=== PATIENT | female | born 1960 | race Caucasian/White ===

== ENCOUNTER 2019-12-10 12:37 | Outpatient (CLI) | payer OTHER, SELFPAY ==
--- NOTE | ~2019-12-10 | MR_ITS ---
EXAMINATION: MR lumbar spine wo con DATE: 12/10/2019 13:28 INDICATION: Low back pain. Right leg pain and numbness. Right foot drop. TECHNIQUE: Magnetic resonance imaging (MRI) of the lumbar spine was performed without intravenous con trast. Sequences included sagittal T2-weighted FSE, sagittal T2-weighted FS FSE, sagittal T1-weighted FSE, and axial T2-weighted FSE. COMPARISON: Lumbar spine MRI 12/03/2015 FINDINGS: There is 13 degrees dextroscoliosis of thoracolumbar spine. S1 is a transitional segment. T here are Schmorl's nodes at multiple levels. There is moderately decreased disc height at L4-L5 and m ildly decreased disc height at L5-S1. The distal spinal cord signal intensity is normal. The conus me dullaris is at L1-L2. The following disc levels are specifically discussed: L1-L2: The disc does not extend beyond the endplate margin. There is mild bilateral facet joint osteo arthritis. There is no neural foraminal stenosis. There is no central canal stenosis. L2-L3: The disc does not extend beyond the endplate margin. There is moderate right and mild left fac et joint osteoarthritis. There is no neural foraminal stenosis. There is no central canal stenosis. L3-L4: The disc does not extend beyond the endplate margin. There is moderate bilateral facet joint o steoarthritis. There is no neural foraminal stenosis. There is no central canal stenosis. L4-L5: The disc is bulging with superimposed right central extrusion. There is severe right and moder ate left facet joint osteoarthritis. There is moderate right and mild left neural foraminal stenosis. There is mild central canal stenosis. L5-S1: The disc is bulging with superimposed right central extrusion. There is severe bilateral facet joint osteoarthritis. There is mild bilateral neural foraminal stenosis. There is mild central canal stenosis. IMPRESSION: 1. Moderate lower lumbar spondylosis with improvement in the extrusion at L5-S1 from 12/03/2015. Reviewed, dictated and finalized at location A.
== END 2019-12-10 12:38 | disposition home or self-care (01) ==
PROVIDERS: PCP Family Medicine; Visit Provider Family Medicine
DX: M21.371 Foot drop, right foot (principal); R20.2 Paresthesia of skin; M47.816 Spondylosis without myelopathy or radiculopathy, lumbar region
CPT/HCPCS: 72148

== ENCOUNTER 2020-01-31 14:00 | Outpatient (CLI) | payer OTHER, SELFPAY ==
--- NOTE | ~2020-01-31 | MM_ITS ---
EXAMINATION: MM screening tavo BI w luciano HISTORY: Screening mammogram TECHNIQUE: Craniocaudal and mediolateral oblique 3-D tomosynthesis images were obtained and synthetic 2-D images were generated. Bilateral rotated lateral CC views. CAD analysis was submitted and interp reted. (Patient was called back for repeat Right MLO and CC views.) COMPARISON: 12/19/2018 diagnostic left digital mammogram 12/18/2018, 11/02/2017, 10/22/2016 bilateral digital screening mammogram examinations BREAST PARENCHYMAL COMPOSITION: The breasts are heterogeneously dense, which may obscure small masses . FINDINGS: There is a biopsy marker on the right; history of prior benign right breast biopsy. Stable fibroglandular asymmetry. There is no evidence of suspicious mass, calcification, or architect intern ural distortion to suggest malignancy in either breast. There has been no suspicious interval change. IMPRESSION: 1. No mammographic evidence of malignancy. 2. Recommend routine screening mammography in one year. BI-RADS Category 2: Benign finding(s). 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
== END 2020-01-31 14:01 | disposition home or self-care (01) ==
LOC: ANHIMG 14:01
PROVIDERS: PCP Family Medicine; Visit Provider Family Medicine
DX: Z12.31 Encounter for screening mammogram for malignant neoplasm of breast (principal)
CPT/HCPCS: 77063; 77067

== ENCOUNTER 2021-02-11 15:43 | Outpatient (CLI) | payer OTHER, SELFPAY ==
--- NOTE | ~2021-02-11 | MM_ITS ---
EXAMINATION: MM screening [facility] BI w lu[place]ano HISTORY: Screening mammogram TECHNIQUE: Craniocaudal and mediolateral oblique 3-D tomosynthesis images were obtained and synthetic 2-D images were generated. CAD analysis was submitted and interpreted. COMPARISON: 01/31/2020, 12/19/2018, 12/06/2018 BREAST PARENCHYMAL COMPOSITION: The breasts are heterogeneously dense, which may obscure small masses . FINDINGS: There is no evidence of suspicious mass, calcification, or architectural distortion to sugg est malignancy in either breast. There has been no suspicious interval change. IMPRESSION: 1. No mammographic evidence of malignancy. 2. Recommend routine screening mammography in one year. BI-RADS Category 1: Negative Reviewed, dictated and finalized at location A. 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
== END 2021-02-11 15:44 | disposition home or self-care (01) ==
PROVIDERS: PCP Family Medicine; Visit Provider Obstetrics & Gynecology
DX: Z12.31 Encounter for screening mammogram for malignant neoplasm of breast (principal)
CPT/HCPCS: 77063; 77067

== ENCOUNTER 2021-05-21 12:47 | Outpatient (CLI) | payer BC, SELFPAY ==
--- NOTE | ~2021-05-21 | DEXA_ITS ---
Bone Density Report Name: GEM PRIETO Age: 61 Sex: Female Ethnicity: White Date of : 1960 Indication: postmenopausal; inflammatory bowel disease; cancer; Referring Provider: CAMERON RAMACHANDRAN Study: Bone densitometry was performed. Exam Date: May 21, 2021 Accession number: [id number] Bone Density: Region BMD T-score Z-score Classification AP Spine (L1-L4) 1.117 0.6 2.0 Normal Femoral Neck (Left) 0.920 0.6 1.9 Normal Total Hip (Left) 0.972 0.2 1.2 Normal Total Hip Bilateral Avg 0.958 0.1 1.0 Normal Femoral Neck (Right) 0.925 0.7 2.0 Normal Total Hip (Right) 0.943 0.0 0.9 Normal World Health Organization criteria for BMD impression classify patients as: Normal (T-score at or above -1.0), Osteopenia (T-score between -1.0 and -2.5), or Osteoporosis (T-score at or below -2.5). 10-year Fracture Risk: FRAX not reported because: All T-scores for Spine Total, Hip Total, Femoral Neck at or above -1.0 Previous Exams: Region Exam Age BMD T-score BMD Change BMD Change Date g/cm2 vs Baseline vs Previous AP Spine(L1-L4) 05/21/2021 61 1.117 0.6 -0.152(-12.0%) -0.043(-3.7%)* 10/22/2016 56 1.159 1.0 -0.109(-8.6%)# -0.109(-8.6%)# 03/30/2011 50 1.269 2.0 Total Hip(Left) 05/21/2021 61 0.972 0.2 -0.172(-15.0%) -0.064(-6.2%)* 10/22/2016 56 1.036 0.8 -0.108(-9.4%)# -0.108(-9.4%)# 03/30/2011 50 1.143 1.7 Total Hip(Right) 05/21/2021 61 0.943 0.0 -0.182(-16.2%) -0.096(-9.2%)* 10/22/2016 56 1.038 0.8 -0.086(-7.6%)# -0.086(-7.6%)# 03/30/2011 50 1.124 1.5 *Denotes significance at 95% confidence level, LSC for AP Spine = 0.022 g/cm2, LSC for Total Hip = 0.027 g/cm2 Clinical Information Provided by Patient: Has used the following medications: Vitamin D, Calcium Has the following medical conditions: Cancer, Inflammatory bowel diseases Patient maximum height was 69 Menopause Age: 51 Onset of menses at age 17 Number of children 1 Impression: The patient has normal bone mass. The BMD for the AP Spine(L1-L4) decreased, changing by -3.7% since the last DXA exam. The BMD for the Total Hip(Left) decreased, changing by -6.2% since the last DXA exam. The BMD for the Total Hip(Right) decreased, changing by -9.2% since the last DXA exam. Discussion: BONE DENSITY IS ABOVE THE MINIMUM DESIRABLE LEVEL AT ALL SKELETAL SITES TESTED. This patient?s bone mineral density is above the minimum desirable level (T-score -1.0 or better
== END 2021-05-21 12:48 | disposition home or self-care (01) ==
PROVIDERS: PCP Family Medicine; Visit Provider Obstetrics & Gynecology
DX: Z78.0 Asymptomatic menopausal state (principal)
CPT/HCPCS: 77080

== ENCOUNTER 2021-10-09 12:09 | Outpatient (CLI) | payer BC, SELFPAY ==
--- NOTE | ~2021-10-09 | XR_ITS ---
XR hand RT 2V DATE: 10/09/2021 12:30 INDICATION: Arthralgia. Right hand pain. TECHNIQUE: AP and lateral views COMPARISON: None FINDINGS: No fracture or dislocation, periosteal reaction or bone destruction, erosive change or miguel drocalcinosis. Joint spaces are preserved. IMPRESSION: No significant abnormality Reviewed, dictated and finalized at location B. IMPRESSION: No significant abnormality
--- NOTE | ~2021-10-09 | XR_ITS ---
XR hand LT 2V DATE: 10/09/2021 12:31 INDICATION: Arthralgia. Left hand pain. TECHNIQUE: AP and lateral views COMPARISON: None FINDINGS: No fracture, dislocation, periosteal reaction or bone destruction, erosive change, chondroc alcinosis or significant joint space narrowing. IMPRESSION: Negative Reviewed, dictated and finalized at location B. IMPRESSION: Negative
== END 2021-10-09 12:10 | disposition home or self-care (01) ==
LOC: ANHIMG 12:13
PROVIDERS: PCP Family Medicine; Visit Provider Physician Assistant
DX: M25.50 Pain in unspecified joint (principal)
CPT/HCPCS: 73120

== ENCOUNTER 2022-04-06 08:59 | Outpatient (CLI) | payer BC, SELFPAY ==
--- NOTE | ~2022-04-06 | MM_ITS ---
EXAMINATION: MM screening tavo BI w luciano HISTORY: Screening mammogram TECHNIQUE: Craniocaudal and mediolateral oblique 3-D tomosynthesis images were obtained and synthetic 2-D images were generated. CAD analysis was submitted and interpreted. COMPARISON: 02/11/2021, 01/31/2020 bilateral screening mammogram examinations BREAST PARENCHYMAL COMPOSITION: The breasts are heterogeneously dense, which may obscure small masses . FINDINGS: There is no evidence of suspicious mass, calcification, or architectural distortion to sugg est malignancy in either breast. There has been no suspicious interval change. IMPRESSION: 1. No mammographic evidence of malignancy. 2. Recommend routine screening mammography in one year. 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
== END 2022-04-06 09:00 | disposition home or self-care (01) ==
LOC: ANHIMG 09:01
PROVIDERS: PCP Family Medicine; Visit Provider Obstetrics & Gynecology
DX: Z12.31 Encounter for screening mammogram for malignant neoplasm of breast (principal)
CPT/HCPCS: 77063; 77067

== ENCOUNTER 2022-10-28 09:20 | Outpatient (CLI) | payer MEDICARE, SELFPAY ==
[2022-10-28 18:30] LABS: Basophils Percent Auto 0.7 % (0.2-1.2); Eosinophils Absolute Auto 0.1 K/mm3 (0-0.3); Eosinophils Percent Auto 1.2 % (0-4.4); Lymphocytes Absolute Auto 1.37 K/mm3 (0.9-3.2); Lymphocytes Percent Auto 32.7 % (18.3-44.2); Mean Corpuscular HGB Conc 32.5 g/dl (32-36); Mean Corpuscular Hemoglobin 30.7 pg (26-34); Mean Corpuscular Volume 94.3 fl (80-100); Mean Platelet Volume 9.9 fl (7.4-10.4); Monocytes Absolute Auto 0.4 K/mm3 (0.1-0.6); Monocytes Percent Auto 8.4 % (2.6-8.5); Neutrophils Absolute Auto 2.4 K/mm3 (1.3-6.7); Platelet Count Result 201 k/mm3 (150-375); Red Blood Count 4.24 M/mm3 (4.2-5.4); Red Cell Distribution Width 13.2 % (11.5-14.5); White Blood Count 4.2 K/mm3 (4.5-10.0)
[2022-10-28 19:27] LABS: Alanine Aminotransferase 44 U/L (6-35); Albumin Level 4.1 g/dL (3.5-5.1); Alkaline Phosphatase 60 U/L (38-126); Anion Gap 2 mmol/L (8-16); Aspartate Amino Transferase 36 U/L (14-36); Bilirubin,Total 0.7 mg/dL (0.2-1.3); Blood Urea Nitrogen 16 mg/dL (7-17); Calcium 8.8 mg/dL (8.4-10.2); Carbon Dioxide 34 mmol/L (22-30); Chloride 105 mmol/L (98-107); Cholesterol 164 mg/dL (0-200); Estimated Glomerular Filt Rate > 60; Glucose 84 mg/dL (65-110); HDL Direct 79 mg/dL; Potassium 4.3 mmol/L (3.4-5.0); Sodium 141 mmol/L (137-145); Triglycerides 80 mg/dL (<150)
[2022-10-28 19:44] LABS: LDL Cholesterol Direct 70 mg/dL
== END 2022-10-28 09:21 | disposition home or self-care (01) ==
PROVIDERS: PCP Family Medicine; Visit Provider Family Medicine
DX: H50.60 Mechanical strabismus, unspecified (principal); K50.00 Crohn's disease of small intestine without complications
CPT/HCPCS: 36415; 80053; 80061; 84443; 85025

== ENCOUNTER → 2023-04-08 08:56 | Outpatient (CLI) | payer MEDICARE, SELFPAY ==
--- NOTE | ~2023-04-08 | MR_ITS ---
EXAMINATION: MR MRCP wo/w con/w 3D wo ind DATE: 04/08/2023 10:05 INDICATION: History of pancreatic cyst, Crohn's disease TECHNIQUE: Magnetic resonance imaging (MRI) of the abdomen was performed without and with intravenous contrast. Sequences included coronal T2-weighted SS-FSE ARC, coronal T2-weighted FS SS-FSE, coronal T2-weighted 2D FS FIESTA, Water:Coronal LAVA-Flex, sagittal T2-weighted SS-FSE ARC, axial SSFSE ARC, axial 3D DualEcho, axial DWI B=600, axial T1-weighted LAVA, FAT:Coronal LAVA-Flex, and coronal in and opposed phase LAVA-Flex. Thick-slab T2-weighted FRFSE-XL images were obtained for magnetic resonance cholangiopancreatography (MRCP). Maximum intensity projection 3-D reconstructions of the volumetric data were created by the technologist. Postcontrast sequences included a time course of axial T1-weig hted LAVA, FAT:Coronal LAVA-Flex, coronal in and opposed phase LAVA-Flex, and Water:Coronal LAVA-Flex . COMPARISON: CT, 02/28/2015 CONTRAST: Multihance, 12 cc FINDINGS: ABDOMEN MRI: The liver, spleen, and adrenal glands are normal. Changes of cholecystectomy are noted. Cysts of the right kidney measure up to 3 mm. The left kidney is unremarkable. There is a 10 mm x 6 m m cystic lesion in the uncinate process of the pancreas which appears stable since the comparison CT and does not definitely communicate with the main pancreatic duct. There are no pathologically enlarg ed abdominal lymph nodes. There are no dilated loops of bowel. No abnormal enhancement is present aft er contrast administration. ABDOMEN MRCP: There are no stones or stricture of the common bile duct. The pancreatic duct is normal in course and caliber. IMPRESSION: 1. 10 mm cystic lesion in the uncinate process of the pancreas which appear stable since 2015. The di fferential diagnosis includes pseudocyst, intraductal papillary mucinous neoplasm (IPMN), mucinous cy stic neoplasm (MCN), and the less common serous cystadenoma and neuroendocrine tumor. Correlate for h istory of pancreatitis. According to current recommendations, no further follow-up is recommended giv en interval stability. Reviewed, dictated and finalized at location L. 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 10 mm cystic lesion in the uncinate process of the pancreas which appear sta ble since 2014. The differential diagnosis includes pseudocyst, intraductal pap illary mucinous neoplasm (IPMN), mucinous cystic neoplasm (MCN), and the less c ommon serous cystadenoma and neuroendocrine tumor. Correlate for history of rutledge creatitis. According to current recommendations, no further follow-up is recomm ended given interval stability.
== END ==
PROVIDERS: PCP Family Medicine; Visit Provider Family Medicine
DX: K86.2 Cyst of pancreas (principal)
CPT/HCPCS: 74183; 76376; A9577

== ENCOUNTER 2023-06-25 10:29 | Outpatient (CLI) | payer MEDICARE, SELFPAY | END 2023-06-25 10:30 | disposition home or self-care (01) | PROVIDERS: PCP Family Medicine | DX: K50.018 Crohn's disease of small intestine with other complication (principal) | CPT/HCPCS: 36415 ==

== ENCOUNTER 2023-07-30 09:18 | Outpatient (CLI) | payer MEDICARE, SELFPAY ==
--- NOTE | ~2023-07-30 | MM_ITS ---
EXAMINATION: MM screening tavo BI w luciano HISTORY: Screening TECHNIQUE: Craniocaudal and mediolateral oblique 3-D tomosynthesis images were obtained and synthetic 2-D images were generated. CAD analysis was submitted and interpreted. COMPARISON: Comparison to multiple prior studies sequentially, with oldest reviewed study dated 05/2019. BREAST PARENCHYMAL COMPOSITION: Dense: The breasts are heterogeneously dense, which may obscure small masses FINDINGS: There is no evidence of suspicious mass, calcification, or architectural distortion to sugg est malignancy in either breast. There has been no suspicious interval change. IMPRESSION: 1. No mammographic evidence of malignancy. 2. Recommend routine screening mammography in one year. BI-RADS Category 1: Negative Reviewed, dictated and finalized at location B.
== END 2023-07-30 09:19 | disposition home or self-care (01) ==
PROVIDERS: PCP Family Medicine; Visit Provider Nurse Practitioner Family
DX: Z12.31 Encounter for screening mammogram for malignant neoplasm of breast (principal)
CPT/HCPCS: 77063; 77067

== ENCOUNTER 2023-08-19 09:25 | Outpatient (CLI) | payer MEDICARE, SELFPAY ==
[2023-08-19 14:49] LABS: Basophils Percent Auto 0.8 % (0.2-1.2); Eosinophils Absolute Auto 0.1 K/mm3 (0-0.3); Eosinophils Percent Auto 1.8 % (0-4.4); Hematocrit 40.2 % (37.0-47.0); Immature Granulocyte Absolute 0.01 K/mm3 (0.00-0.031); Immature Granulocyte Percent A 0.3 % (0-0.5); Lymphocytes Absolute Auto 1.37 K/mm3 (0.9-3.2); Lymphocytes Percent Auto 34.8 % (18.3-44.2); Mean Corpuscular HGB Conc 32.3 g/dl (32-36); Mean Corpuscular Hemoglobin 29.9 pg (26-34); Mean Corpuscular Volume 92.4 fl (80-100); Mean Platelet Volume 10.3 fl (7.4-10.4); Monocytes Absolute Auto 0.3 K/mm3 (0.1-0.6); Monocytes Percent Auto 6.9 % (2.6-8.5); Neutrophils Absolute Auto 2.2 K/mm3 (1.3-6.7); Neutrophils Percent Auto 55.4 % (45.5-73.1); Platelet Count Result 167 k/mm3 (150-375); Red Blood Count 4.35 M/mm3 (4.2-5.4); Red Cell Distribution Width 12.5 % (11.5-14.5); White Blood Count 3.9 K/mm3 (4.5-10.0)
[2023-08-19 15:40] LABS: Iron 79 ug/dL (37-170)
[2023-08-19 15:51] LABS: Alanine Aminotransferase 47 U/L (6-35); Albumin Level 4.3 g/dL (3.5-5.1); Alkaline Phosphatase 60 U/L (38-126); Anion Gap 8 mmol/L (4-12); Aspartate Amino Transferase 45 U/L (14-36); Bilirubin,Total 0.8 mg/dL (0.2-1.3); Blood Urea Nitrogen 20 mg/dL (7-17); CRP < 0.5 mg/dL (<1.0); Carbon Dioxide 29 mmol/L (22-30); Chloride 104 mmol/L (98-107); Estimated Glomerular Filt Rate > 60; Glucose 84 mg/dL (65-110); Potassium 3.8 mmol/L (3.4-5.0); Sodium 141 mmol/L (137-145)
[2023-08-19 16:01] LABS: Percent Iron Saturation 22 % (20-50)
[2023-08-19 17:20] LABS: Folic Acid > 20.0 ng/mL (2.76->20)
[2023-08-22 12:08] LABS: Zinc 79 mcg/dL (60-130)
== END 2023-08-19 09:26 | disposition home or self-care (01) ==
LOC: ANHGOSHLAB 09:28
PROVIDERS: PCP Family Medicine
DX: K50.018 Crohn's disease of small intestine with other complication (principal); Z79.899 Other long term (current) drug therapy
CPT/HCPCS: 36415; 80053; 82607; 82728; 82746; 83540; 83550; 84630; 85025; 86140

== ENCOUNTER 2023-12-28 08:37 | Outpatient (CLI) | payer MEDICARE, SELFPAY ==
[2023-12-28 20:42] LABS: Alanine Aminotransferase 36 U/L (6-35); Albumin Level 4.3 g/dL (3.5-5.1); Alkaline Phosphatase 59 U/L (38-126); Aspartate Amino Transferase 34 U/L (14-36); Bilirubin,Total 1.1 mg/dL (0.2-1.3)
[2023-12-28 23:01] LABS: Hepatitis B Surface Antigen Negative (Negative)
[2023-12-28 23:06] LABS: HAV RESULT Negative (Negative); Hepatitis B Core IgM Result Negative (Negative)
[2023-12-28 23:18] LABS: Hepatitis C Virus Antibody Negative (Negative)
== END 2023-12-28 08:38 | disposition home or self-care (01) ==
LOC: ANHGOSHLAB 08:39
PROVIDERS: PCP Family Medicine; Visit Provider Family Medicine
DX: R74.8 Abnormal levels of other serum enzymes (principal)
CPT/HCPCS: 36415; 80074; 80076

== ENCOUNTER 2024-03-23 10:55 | Outpatient (CLI) | payer MEDICARE, SELFPAY ==
[2024-03-23 18:27] LABS: Basophils Percent Auto 0.5 % (0.2-1.2); Hematocrit 40.1 % (37.0-47.0); Hemoglobin 13.1 g/dL (12.0-15.0); Lymphocytes Absolute Auto 1.26 K/mm3 (0.9-3.2); Lymphocytes Percent Auto 32.6 % (18.3-44.2); Mean Corpuscular HGB Conc 32.7 g/dl (32-36); Mean Corpuscular Hemoglobin 30.9 pg (26-34); Mean Corpuscular Volume 94.6 fl (80-100); Mean Platelet Volume 10.2 fl (7.4-10.4); Monocytes Absolute Auto 0.3 K/mm3 (0.1-0.6); Monocytes Percent Auto 6.7 % (2.6-8.5); Neutrophils Absolute Auto 2.3 K/mm3 (1.3-6.7); Neutrophils Percent Auto 59.2 % (45.5-73.1); Platelet Count Result 151 k/mm3 (150-375); Red Blood Count 4.24 M/mm3 (4.2-5.4); Red Cell Distribution Width 12.2 % (11.5-14.5); White Blood Count 3.9 K/mm3 (4.5-10.0)
[2024-03-23 19:15] LABS: Alanine Aminotransferase 42 U/L (6-35); Albumin Level 4.3 g/dL (3.5-5.1); Alkaline Phosphatase 59 U/L (38-126); Anion Gap 7 mmol/L (4-12); Aspartate Amino Transferase 34 U/L (14-36); Blood Urea Nitrogen 19 mg/dL (7-17); CRP < 0.5 mg/dL (<1.0); Carbon Dioxide 30 mmol/L (22-30); Chloride 101 mmol/L (98-107); Estimated Glomerular Filt Rate > 60; Glucose 86 mg/dL (65-110); Potassium 3.6 mmol/L (3.4-5.0); Sodium 138 mmol/L (137-145)
[2024-03-23 19:19] LABS: Iron 129 ug/dL (37-170)
[2024-03-23 19:28] LABS: Hepatitis B Surface Antigen Negative (Negative)
[2024-03-23 19:30] LABS: Percent Iron Saturation 36 % (20-50)
[2024-03-23 19:33] LABS: Hepatitis B Core IgM Result Negative (Negative)
[2024-03-23 19:45] LABS: Hepatitis B Surface Anti Res Negative
[2024-03-23 19:55] LABS: Vitamin D 25 Hydroxy 33.7 ng/mL
[2024-03-23 20:14] LABS: Folic Acid 19.3 ng/mL (2.76->20)
--- OUTSIDE RECORDS SUMMARY | 2024-03-24 04:26 | XMS_ITS | Clinical Summary ---
Author Organization [facility] Address [address] [place] [address] Care Team Providers Care Building Repair Maintenance Supervisor Name Role Phone Kolton Roe MD Primary Care Provider [phone] Timbo Swanson MD Unavailable [phone] Johan Martinez MD Unavailable [phone] Allergies Active Allergy Reactions Criticality Noted Date Comments Oxycodone Other (See comments) Low 12/12/2014 Confusion, Behavorial changes. Medications calcium carb-magnesium ox,carb 200 mg calcium- 100 mg tablet,chewableI ndications:Bone health support Take 1 tablet by mouth every morning Active pyridoxine (VITAMIN B-6) 100 mg tabletIndication s:Vitamin Deficiency Prevention Take 1 tablet (100 mg total) by mouth every morning Active cyanocobalamin (Vitamin B-12) 1,000 mcg tabletIndication s:Prevention of Vitamin B12 Deficiency Take 1 tablet (1,000 mcg total) by mouth every morning Active folic acid (FOLVITE) 1 mg tabletIndication s:Folate Deficiency Take 1 tablet (1 mg total) by mouth every morning Active multivit pcjulrya-ymoi-WS -calcium (THERA-M) 9 mg iron-400 mcg tabletIndication s:Vitamin Deficiency Prevention Take 1 tablet by mouth every morning Active adalimumab (Humira,CF,) 40 mg/0.4 mL syringe kitIndications:C rohn's Disease Inject 0.4 mL (40 mg total) under the skin every 14 (fourteen) days Last injection was 01/24/2023 3 Active traZODone (DESYREL) 50 mg tabletIndication s:insomnia associated with depression Take 1 tablet (50 mg total) by mouth nightly at bedtime 3 Active Lactobacillus acidophilus (PROBIOTIC ACIDOPHILUS ORAL)Indications :gut health Take 1 capsule by mouth nightly Plexus brand Active acetaminophen (TYLENOL) 500 mg tablet Take 1 tablet (500 mg total) by mouth every 6 (six) hours as needed for pain or headaches (gets headaches from budesonide) Active sodium chloride-aloe vera ([place] Saline) gelIndications:E pistaxis Apply 1 Application topically as needed Active valACYclovir (VALTREX) 500 mg tablet Take 1 tablet (500 mg total) by mouth 3 (three) times a day 90 tablet 5 3 Active ketorolac (ACULAR) 0.5 % ophthalmic solution Administer 1 drop into the left eye 4 (four) times a day 5 mL 2 3 Active budesonide EC (ENTOCORT EC) 3 mg 24 hr capsule Take 2 capsules (6 mg total) by mouth every morning Active Active Problems Problem Noted Date Diagnosed Date Pseudophakia of left eye 02/27/2023 Assessment & Plan (02/27/2023 3:50 PM DIRECTOR FEDERAL): POD1.5 s/p CEIOL OS --Last seen 02/25 at which point noted to have lamellar hole OS and started on ketorolac QID in addition to pred forte QID --Today: exam stable, vision slightly improved. No PVD, VH, RD/RT on scleral depressed exam OS. PLAN --Continue pred forte QID --Continue ketorolac QID --Continue valtrex 1g TID as instructed --RTC as scheduled on 03/[address] Hardy, PGY-4. Posterior subcapsular polar age-related cataract of left eye 02/05/2023 Pseudophakia of right eye 01/13/2022 Polyarthralgia 10/08/2021 Overview (10/22/2021): Labs 10/08/2021 CBC wnl ALT 61, CMP otherwise wnl CRP and ESR wnl RF, CCP, and 14.3.3 eta negative Xrays 10/09/2021 XR B hands - negative Ultrasound 10/15/2021 US Right hand/wrist: 1) Marked synovial thickening of the dorsal wrist with erosion of the lunate 2) Grade 1 power Doppler of the radial scaphoid joint 3) Marked synovial thickening of the 3rd MCPJ, Mild in the 4th MCPJ 4) Marked synovial thickening of the 2nd and 3rd PIPJ Assessment & Plan (10/22/2021 2:55 PM CDT): 61yoF with a history of Crohn's presents due to acute on chronic joint discomfort which seemingly worsened after Stelara injection earlier this year. The question became atypical AE vs 2/2 active disease. She has had some mechanical sounding joint pain for many years, it was primarily stiffness that was worse in the morning which occurred after Stelara. By exam today she has several tender joints in her hands as well as synovitis in a few PIP joints. Our workup shows largely unremarkable serologies, normal hand xrays, and US of the R hand/wrist with marked synovial thickening in three joints without effusion/power doppler and an erosion of the lunate of uncertain significance. The synovial thickening on exam does correlate with the synovitis noted on exam. 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 Lilia mentioned that Humira was being considered as her next treatment option, certainly agree that this would be an appropriate choice. However, she felt that Stelara was helping her IBD and she may prefer to continue with this for another dose before considering a switch to Humira, which is reasonable. In either case, would plan to see her back in ~6 months to assess how her joints have responded to treatment. Follow up sooner as needed. Assessment & Plan (10/08/2021 3:53 PM CDT): 61yoF with a history of Crohn's presents due to acute on chronic joint discomfort which seemingly worsened after Stelara injection earlier this year. The question became atypical AE vs 2/2 active disease. She has had some mechanical sounding joint pain for many years, it was primarily stiffness that was worse in the morning which occurred after Stelara. She has noticed a gradual improvement the further removed she gets from the last Stelara. By exam today she has several tender joints in her hands as well as suspected synovitis in a few joints. Agree that would not typically expect this to be a side effect of Stelara, suspect that she may have an inflammatory arthritis which may well be an extraintestinal manifestation of her active Crohn's vs overlap with something like RA. Lilia mentioned that Humira was being considered as her next treatment option, certainly agree that this would be an appropriate choice should we find active inflammatory arthritis. To further evaluate will check labs and imaging as below with follow up in 2 weeks to review results. Crohn's disease (CMS/HCC) 04/15/2021 Assessment & Plan (10/22/2021 2:55 PM CDT): MRI 08/2021 with involvement of the distal 15 cm of small bowel with mild colitis of the descending colon to the rectum and possible partial SOB. Most recently started on Stelara, on hold, and resumed budesonide as of 10/01. She will follow up with GI to discuss next steps in treatment. Assessment & Plan (10/08/2021 3:55 PM CDT): MRI 08/2021 with involvement of the distal 15 cm of small bowel with mild colitis of the descending colon to the rectum and possible partial SOB. Most recently started on Stelara, on hold, and resumed budesonide as of 10/01. Will workup joint complaints and agree with consideration for the use of Humira as above. 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 Hx PBK/endo scar s/p IOL OD(06/16/16 Dr. Suarez) Hx of herpetic keratitis. Initial confocal (06/2016) 307 / 2924 May be starting biologic soon Continue Valtrex 250mg daily RTC 1 year Assessment & Plan (05/31/2018 11:41 AM CDT): Brown- Kingston Syndrome Stable. Hx PBK/endo scar s/p IOL OD(06/16/16 Dr. Suarez) Hx of herpetic keratitis. Initial confocal (06/2016) 307 / 2924 CPM (valtrex 500mg daily) RTC yearly (gets DFE with optom) Posterior subcapsular age-related cataract, left eye 05/31/2018 Assessment & Plan (10/08/2022 3:20 PM CDT): Decreased VA/BAT/AdLs REC: CE/PCIOL OS Risks, benefits, and alternatives of surgery discussed in detail with patient including but not limited to infection, bleeding, persistent inflammation, pain, diplopia, ptosis, need for further visits and surgeries, need for spectacle or contact lens correction after surgery, possible loss of vision, possible loss of the eye, and risks of anesthesia. The patient understands these risks and wishes to proceed. Assessment & Plan (01/13/2022 12:00 PM DIRECTOR FEDERAL): Visually significant, patient elects to continue to monitor 20/60+2 pinhole (ph) 20/40-1 OS BAT 20/100 OS RTC 4 months Assessment & Plan (12/05/2019 4:17 PM CDT): Not visually significant, doing well Likely related to hx steroid use for Crohns -- CTM Assessment & Plan (05/31/2018 11:09 AM CDT): Not visually significant, observe for now. 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 Crohn's disease of small intestine 07/16/2015 Overview (06/04/2016): Crohn's disease of small intestine with intestinal obstruction Breast cancer, female 01/07/2015 Personal history of other diseases of the digest raudel system Overview (04/16/2021): History of Crohn's disease - (Added by TW Conv) Immunizations Name Administration Dates Next Due Influenza, Quadrivalent, Spl it, Preservative Free, Intramuscular 04/18/2021 Surgical History Surgery Date Site/Laterality Comments CHOLECYSTECTOMY 03/01/2014 - 02/28/2015 BREAST LUMPECTOMY 03/01/2009 - 02/28/2010 Right ENDOMETRIAL ABLATION 03/01/2010 - 02/28/2011 uterine ablation CATARACT EXTRACTION W/ INTRAOCULAR LENS IMPLANT 03/01/2016 - 02/28/2017 Right cataract extraction DILATION AND CURETTAGE OF UTERUS 03/01/2010 - 02/28/2011 COLECTOMY 03/01/2015 - 02/29/[address] Wolff BREAST BIOPSY 03/01/2010 - 02/28/2011 Right COLONOSCOPY 08/31/2022 Medical History Medical History Date Comments Cancer (CMS/HCC) (HCC) 2009 breast ca ncer ductal ca in situ Crohn disease (CMS/HCC) (HCC) Spinal stenosis Cataract Epistaxis Family History Medical History Relation Name Comments Cancer Mother Fibromyalgia Mother Neuropathy Mother Relation Name Status Comments Mother Social History Tobacco Use Types Packs/Day Years Used Date Smoking Tobacco: Never Passive Smoke Exposure: Past Smokeless Tobacco: Never Tobacco Cessation:Counseling Given: Not Answered Passive Exposure Comments:mother smoked AUDIT-C Answer Date Recorded Q1: How often do you have a drink containing alcohol? Never 02/16/2023 Q2: How many drinks containi ng alcohol do you have on a typical day when you are drinking? Patient does not drink Q3: How often do you have si x or more drinks on one occasion? Never 02/16/2023 Personal Safety Answer Date Recorded Have you ever been in or are you currently in a harmful physical or emotional relationship or is someone making you feel afraid or unsafe? Denies 02/16/2023 Comments No Sex and Gender Information Value Date Recorded Sex Assigned at Not on file Legal Sex Female 8:11 AM DIRECTOR FEDERAL Gender Identity Female 04/21/2020 8:21 PM DIRECTOR FEDERAL Sexual Orientation Not on file Obstetrics History Last Filed Vital Signs Vital Sign Reading Time Taken Comments Blood Pressure 113/59 02/27/2023 1:30 PM DIRECTOR FEDERAL Pulse 67 02/27/2023 1:30 PM DIRECTOR FEDERAL Temperature 36.8 ??C (98.3 ??F) 02/27/2023 1:30 PM CS T Respiratory Rate 16 02/27/2023 1:30 PM DIRECTOR FEDERAL Oxygen Saturation 99% 02/27/2023 1:30 PM DIRECTOR FEDERAL Inhaled Oxygen Concentration - - Weight 56.7 kg (125 lb) 02/27/2023 1:30 PM DIRECTOR FEDERAL Height 175.3 cm (5' 9 ) 02/27/2023 1:30 PM DIRECTOR FEDERAL Body Mass Index 18.46 02/27/2023 1:30 PM DIRECTOR FEDERAL Plan of Treatment Health Maintenance Due Date Last Done Comments Breast Cancer Screening-Mammogram 1961 Cervical Cancer Screening 1961 Colon Cancer Screening-Colonoscopy 1961 Depression Screening 1961 DTaP/Tdap/Td Vaccine (1 - Tdap) 1972 Hepatitis B Screening 05/08/1979 Regular Well Visit/Exam 18-64 05/08/1979 Zoster Vaccine (2 of 3) 03/04/2015 01/07/2015 Influenza Vaccine (#1) 2023 2, 12/01/2019, 01/07/2015 Hepatitis C Screening Completed 04/16/2021 Pneumococcal vaccine <65 Aged Out No longer eligible based on patient's age to complete this topic Medical Devices Implanted Type Area Marksmanship Instructor Device Identifier Shelf Expiration Date Model / Serial / Lot [employer] Lens Iol Tecnis Smplcty 1-Pc Clr [place] 24.0 Diopter [id number] - [id number] - [id number] Implanted:Qty: 1 on 02/16/2023 by Afua Holm MD PhD at [facility] [place] Left: Eye [employer] [id number] 01/28/2025 [id number] / [id number] / Procedures Procedure Name Priority Date/Time Associated Diagnosis Comments HEPATITIS PANEL, ACUTE Routine 04/16/2021 5:26 PM DIRECTOR FEDERAL from Last 3 Months or Most Recently Relevant to Health Maintenance Results * Hepatitis panel, acute (04/16/2021 5:26 PM DIRECTOR FEDERAL) Hep A IgM Nonreactive Nonreactive [facility] Comment: Interpretive Data: If Hep A IgM Ab is reported as Equivocal, a new sample should be drawn in two weeks for testing. Current interpretive data was last revised on 19. Hep B core IgM Nonreactive Nonreactive [facility] Comment: Interpretive Data If HepB Core IgM Ab is reported as Equivocal, a new sample should be drawn in two weeks for testing. Current interpretive data was last revised on 19. Hep C Ab Nonreactive Nonreactive [facility] Comment: Interpretive Data Nonreactive: Antibodies to HCV not detected. Does NOT exclude the possibility of recent exposure to HCV. Equivocal: Equivocal for HCV antibodies. Supplemental molecular testing will be automatically performed to determine infection status in accordance with current CDC screening recommendations. ?? Reactive: Positive for HCV antibodies. ??This may represent current or past HCV infection. Supplemental molecular testing will be automatically performed to determine ??current infection status in accordance with current CDC screening recommendations. Interpretive data was last revised on 2019. HepBsAg Nonreactive Nonreactive [facility] Blood 04/16/2021 5:26 PM DIRECTOR FEDERAL 04/16/2021 5:30 PM DIRECTOR FEDERAL Zeina YEBOAH LAB MICROBIOLOGY - GENERAL ORDERABLES Final Result [facility] [address] [place] [address] from Last 3 Months or Most Recently Relevant to Health Maintenance Insurance T MEDICARE GOLD TNA MEDICARE GOLD BL CHOICE PRF PPO [place] AETNA MEDICARE GOLD Advance Directives For more information, please contact: [phone] Documents on File Type Date Recorded Patient Poker Manager Expl anation Power of Toaster Operator 02/16/2023 8:19 AM Power of Toaster Operator 04/28/2021 12:26 PM ADVANCE DIRECTIVE 12/17/2014 12:00 AM POW ER OF ACOUSTICAL LOGGING ENGINEER FINANCIAL/MEDICAL * Full Code (Latest Code Status on File) Date Activated Date Inactivated Comments 04/15/2021 5:29 PM 04/18/2021 5:14 PM Care Teams Building Repair Maintenance Supervisor Relationship Specialty Start Date End Date Kolton oRe MD PCP - General 08/27/15 [place] [id number] [facility] [place] [address] Consulting Physician Gastroenterology 04/18/21 Johan Martinez MD [address] [place] [address] Consulting Physician Rheumatology 09/19/21
--- OUTSIDE RECORDS SUMMARY | 2024-03-24 04:26 | XMS_ITS | Clinical Summary ---
Author Organization [facility] Address [address] [facility] [address] [place] [address] Phone Care Team Providers Care Media Specialist Name Role Phone Kolton Roe MD Primary Care Provider [phone] Jose Sloan DO Unavailable [phone] Medications budesonide (ENTOCORT EC) 3 MG CAPSULE SR 24 HR Take three capsules by mouth every morning 90 Cap 3 06/11/2015 Active Social History Tobacco Use Types Packs/Day Years Used Date Smoking Tobacco: Never Assessed Comments Unknown Sex and Gender Information Value Date Recorded Sex Assigned at Not on file Legal Sex Female 11:52 PM CDT Gender Identity Not on file Sexual Orientation Not on file Plan of Treatment Health Maintenance Due Date Last Done Comments TdaP Immunization 1961 Pap Smear 1982 Cervical Cancer Screening (CCS) 05/08/1991 HPV/Cotest 05/08/1991 Cologuard 05/08/2011 Immunochemical Fecal Occult Blood 05/08/2011 Mammogram 05/08/2011 Pneumococcal Immunization (5 0+ years) (1 of 1 - PCV) 05/08/2011 Zoster Immunization (1 of 2) 05/08/2011 Influenza Immunization (#1) 2023 SARS-COV-2 Immunization (1 - 2023- season) 2023 Colonoscopy 02/11/2025 02/11/2015 Colorectal Cancer Screening 02/11/2025 Respiratory Syncytial Virus (RSV) Immunization (Adult) (1 - 1-dose 75+ series) 2036 02/11/2015 Hepatitis C Virus (HCV) Screening Completed 015 Hepatitis B Immunization Aged Out No longer eligible based on patient's age to complete this topic Meningococcal Immunization (ACWY) Aged Out No longer eligible based on patient's age to complete this topic Pneumococcal Immunization Combined Aged Out No longer eligible based on patient's age to complete this topic Rotavirus Immunization Aged Out No lo nger eligible based on patient's age to complete this topic Procedures Procedure Name Priority Date/Time Associated Diagnosis Comments HEPATITIS PANEL ACUTE (AHP) Routine 02/14/2015 HM COLONOSCOPY Routine 02/11/2015 from Last 3 Months or Most Recently Relevant to Health Maintenance Results * HEPATITIS PANEL ACUTE (AHP) (02/14/2015) Blood specimen (specimen) us Jose Sloan DO HEMATOLOGY ORDERABLES Final Res ult * HM COLONOSCOPY (02/11/2015) us Jose Sloan DO PROCEDURE/MINOR SURGICAL ORDERA BLES Final Result from Last 3 Months or Most Recently Relevant to Health Maintenance Care Teams Media Specialist Relationship Specialty Start Date End Date Kolton Roe MD [address] [place] [address] [address] [place] [address] PCP - General Family Medicine 02/11/15 Jose Sloan DO [address] [place] [address] [address] [place] [address] Gastroenterology 02/11/15
--- OUTSIDE RECORDS SUMMARY | 2024-03-24 04:26 | XMS_ITS | Referral Summary ---
Author Organization [facility] Address [address] [place] [address] Care Team Providers Care Senior Database Engineer Name Role Phone Kolton Roe MD Primary Care Provider [phone] Timbo Swanson MD Unavailable [phone] Johan Martinez MD Unavailable Allergies Active Allergy Reactions Criticality Noted Date [...] total) by mouth every morning Active multivit cxgmopoc-aged-MC -calcium (THERA-M) 9 mg iron-400 mcg tabletIndication [...] headaches from budesonide) Active sodium chloride-aloe vera ([place] Saline) gelIndications:E pistaxis Apply 1 Application topically [...] 02/27/2023 Assessment & Plan (02/27/2023 3:50 PM CHIEF COUNSEL): POD1.5 s/p CEIOL OS --Last seen 02/25 [...] 12/05/2019 Assessment & Plan (01/13/2022 12:08 PM CHIEF COUNSEL): No recurrence Continue valtrex 500mg daily (may [...] proceed. Assessment & Plan (01/13/2022 12:00 PM CHIEF COUNSEL): Visually significant, patient elects to continue to [...] History of Crohn's disease - (Added by DENISE Conv) Immunizations Name Administration Dates Next Due Influenza, Quadrivalent, Spl it, Preservative Free, Intramuscular 04/18/2021 Social History Tobacco Use Types Packs/Day Years [...] on file Legal Sex Female 8:11 AM CHIEF COUNSEL Gender Identity Female 04/21/2020 8:21 PM CHIEF COUNSEL Sexual Orientation Not on file Last Filed Vital Signs Vital Sign Reading Time Taken Comments Blood Pressure 113/59 02/27/2023 1:30 PM CHIEF COUNSEL Pulse 67 02/27/2023 1:30 PM CHIEF COUNSEL Temperature 36.8 ??C (98.3 ??F) 02/27/2023 1:30 PM CS T Respiratory Rate 16 02/27/2023 1:30 PM CHIEF COUNSEL Oxygen Saturation 99% 02/27/2023 1:30 PM CHIEF COUNSEL Inhaled Oxygen Concentration - - Weight 56.7 kg (125 lb) 02/27/2023 1:30 PM CHIEF COUNSEL Height 175.3 cm (5' 9 ) 02/27/2023 1:30 PM CHIEF COUNSEL Body Mass Index 18.46 02/27/2023 1:30 PM CHIEF COUNSEL Plan of Treatment Not on file Medical Devices Implanted Type Area Camp Boss Device Identifier Shelf Expiration Date Model / Serial / Lot [place] [employer] Lens Iol Tecnis Smplcty 1-Pc Clr [place] 24.0 Diopter [id number] - [id number] - [id number] Implanted:Qty: 1 on 02/16/2023 by Afua Holm MD PhD at [facility] [place] Left: Eye [employer] [id number] 01/28/2025 [id number] / [id number] / Procedures Procedure Name Priority Date/Time Associated Diagnosis Comments HEPATITIS PANEL, ACUTE Routine 04/16/2021 5:26 PM CHIEF COUNSEL from Last 3 Months or Most Recently Relevant to Health Maintenance Results * Hepatitis panel, acute (04/16/2021 5:26 PM CHIEF COUNSEL) Hep A IgM Nonreactive Nonreactive [facility] Comment: Interpretive Data: If Hep A IgM Ab is reported as Equivocal, a new sample should be drawn in two weeks for testing. Current interpretive data was last revised on 19. Hep B core IgM Nonreactive Nonreactive [facility] Comment: Interpretive Data If HepB Core [...] [facility] Blood 04/16/2021 5:26 PM CHIEF COUNSEL 04/16/2021 5:30 PM CHIEF COUNSEL Zeina YEBOAH LAB MICROBIOLOGY - GENERAL ORDERABLES Final Result [facility] [address] Department [place] [address] from Last 3 Months or Most Recently Relevant to Health Maintenance Insurance [facility] MEDICARE GOLD TNA MEDICARE GOLD BL CHOICE PRF PPO [place] AETNA MEDICARE GOLD Advance Directives For more information, please contact: [phone] Documents on File Type Date Recorded Patient Pasteurizer Expl anation Power of Production Planner 02/16/2023 8:19 AM Power of Production Planner 04/28/2021 12:26 PM ADVANCE DIRECTIVE 12/17/2014 12:00 AM POW ER OF SEO SPECIALIST FINANCIAL/MEDICAL * Full Code (Latest Code Status on File) Date Activated Date Inactivated Comments 04/15/2021 5:29 PM 04/18/2021 5:14 PM Care Teams Senior Database Engineer Relationship Specialty Start Date End Date Kolton Roe MD PCP - General 08/27/15 [place] [address] [address] [facility] * [place] [address] Consulting Physician Gastroenterology 04/18/21 Johan Martinez MD [address] [place] [address] Consulting Physician Rheumatology 09/19/21
--- OUTSIDE RECORDS SUMMARY | 2024-03-24 04:26 | XMS_ITS | Clinical Summary ---
Author Organization [facility] Address [address] [place] [address]. [address] [address] Care Team Providers Care Mold Presser Name Role Phone Kolton Roe MD Primary Care Provider [phone] Social History Tobacco Use Types Packs/Day Years Used Date Smoking Tobacco: Never Assessed Comments Unknown Sex and Gender Information Value Date Recorded Sex Assigned at Not on file Legal Sex Female 1:10 PM CDT Gender Identity Not on file Sexual Orientation Not on file Plan of Treatment Health Maintenance Due Date Last Done Comments Cervical Cancer Screening Pa p Smear (Age 30 to 64) Every 3 Years 1961 Colorectal Cancer Screening Colonoscopy (10 Years) 1961 Annual Physical 1964 Hepatitis C 05/08/1979 DTaP, Tdap and Td Vaccines ( 1 - Tdap) 1980 Cervical Cancer Screening Pa p with HPV Testing (Age 30 to 64) Every 5 Years 05/08/1991 Cervical Cancer Screening with HPV 05/08/1991 Mammogram Screening 2001 Zoster Vaccines (1 of 2) 05/08/2011 COVID-19 Vaccine (2023-2 5 season) 2023 Influenza Adult (#1) 2023 12/01/2019 RSV Immunization or 60+ Years (1 - 1-dose 75+ series) 2036 Meningococcal Vaccine Aged Out No melba alexa eligible based on patient's age to complete this topic Pneumococcal Vaccine: Pediat rics (0 to 5 Years) and At-Risk Patients (6 to 64 Years) Aged Out No longer eligi ble based on patient's age to complete this topic RSV Immunizations Under 20 Months Aged Out No longer eligible based on patient's age to complete this topic Insurance AETNA-[place] Care Teams Mold Presser Relationship Specialty Start Date End Date Kolton Roe MD PCP - General FAMILY PRACTICE 12/04/19
[2024-03-24 09:14] LABS: Hepatitis B Core Ab Total NON-REACTIVE (NON-REACTIVE)
[2024-03-27 14:13] LABS: NIL 0.01 IU/mL; Quantiferon TB Plus, 1T NEGATIVE (NEGATIVE); TB1-NIL 0.02 IU/mL; TB2-NIL 0.01 IU/mL
== END 2024-03-23 10:56 | disposition home or self-care (01) ==
LOC: ANHGOSHLAB 10:58
PROVIDERS: PCP Family Medicine
DX: K50.018 Crohn's disease of small intestine with other complication (principal)
CPT/HCPCS: 36415; 80053; 82306; 82607; 82728; 82746; 83540; 83550; 85025; 86140; 86480; 86704; 86705; 86706; 87340

== ENCOUNTER 2024-10-12 07:31 | Outpatient (CLI) | payer MEDICARE, SELFPAY ==
--- NOTE | ~2024-10-12 | MM_ITS ---
EXAMINATION: MM screening tavo BI w luciano HISTORY: Screening TECHNIQUE: Craniocaudal and mediolateral oblique 3-D tomosynthesis images were obtained and synthetic 2-D images were generated. CAD analysis was submitted and interpreted. COMPARISON: Comparison to multiple prior studies sequentially, with oldest reviewed study dated 09/2018. BREAST PARENCHYMAL COMPOSITION: Dense: The breasts are extremely dense, which lowers the sensitivity of mammography. FINDINGS: There is no evidence of suspicious mass, calcification, or architectural distortion to sugg est malignancy in either breast. There has been no suspicious interval change. IMPRESSION: 1. No mammographic evidence of malignancy. 2. Recommend routine screening mammography in one year. BI-RADS Category 1: Negative Reviewed, dictated and finalized at location A.
--- OUTSIDE RECORDS SUMMARY | 2024-10-12 07:35 | XMS_ITS | Clinical Summary ---
Author Organization [facility] Address [address] [place] [address] Care Team Providers Care Public Safety Director Name Role Phone Kolton Roe MD Primary Care Provider [phone] Timbo Swanson MD Unavailable [phone] Johan Martinez MD Unavailable [phone] Allergies Active Allergy Reactions Criticality Noted [...] total) by mouth every morning Active multivit veescxah-obkc-NK -calcium (THERA-M) 9 mg iron-400 mcg tabletIndication [...] or headaches (gets headaches from budesonide) Active valACYclovir (VALTREX) 500 mg tablet Take [...] 02/27/2023 Assessment & Plan (02/27/2023 3:50 PM EMOTIONAL SUPPORT TEACHER): POD1.5 s/p CEIOL OS --Last seen 02/25 [...] 2 weeks to review results. Crohn's disease 04/15/2021 Assessment & Plan (10/22/2021 2:55 PM [...] of Humira as above. 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 Assessment & Plan (01/13/2022 12:00 PM EMOTIONAL SUPPORT TEACHER): Visually significant, patient elects to continue to [...] disease - (Added by TW Conv) Immunizations Immunization Administration Dates Next Due Influenza, Quadrivalent, Spl [...] Medical History Medical History Date Comments Cancer (HCC) 2009 breast cancer du ctal ca in situ Crohn disease (HCC) Spinal stenosis Cataract Epistaxis Family History [...] on file Legal Sex Female 8:11 AM EMOTIONAL SUPPORT TEACHER Gender Identity Female 04/21/2020 8:21 PM EMOTIONAL SUPPORT TEACHER Sexual Orientation Not on file Obstetrics History Last Filed Vital Signs Vital Sign Reading Time Taken Comments Blood Pressure 113/59 02/27/2023 1:30 PM EMOTIONAL SUPPORT TEACHER Pulse 67 02/27/2023 1:30 PM EMOTIONAL SUPPORT TEACHER Temperature 36.8 C (98.3 F) 02/27/2023 1:30 PM EMOTIONAL SUPPORT TEACHER Respiratory Rate 16 02/27/2023 1:30 PM EMOTIONAL SUPPORT TEACHER Oxygen Saturation 99% 02/27/2023 1:30 PM EMOTIONAL SUPPORT TEACHER Inhaled Oxygen Concentration - - Weight 56.7 kg (125 lb) 02/27/2023 1:30 PM EMOTIONAL SUPPORT TEACHER Height 175.3 cm (5' 9) 02/27/2023 1:30 PM EMOTIONAL SUPPORT TEACHER Body Mass Index 18.46 02/27/2023 1:30 PM EMOTIONAL SUPPORT TEACHER Plan of Treatment Health Maintenance Due Date Last Done Comments Breast Cancer Screening-Mammogram 1961 Cervical Cancer Screening 1961 Colon Cancer Screening-Colonoscopy 1961 Depression Screening 1961 DTaP/Tdap/Td Vaccine (1 - Tdap) 1972 Hepatitis B Screening 05/08/1979 Regular Well Visit/Exam 18-64 05/08/1979 Zoster Vaccine (2 of 3) 03/04/2015 01/07/2015 Influenza Vaccine (#1) 2024 2, 12/01/2019, 01/07/2015 Hepatitis C Screening Completed 04/16/2021 Pneumococcal vaccine <65 Aged Out No longer eligible based on patient's age to complete this topic Medical Devices Implanted Type Area Senior Sales Operations Manager Device Identifier Shelf Expiration Date Model / Serial / Lot [employer] Lens Iol Tecnis Smplcty 1-Pc Clr [place] 24.0 Diopter [id number] - [id number] - [id number] Implanted:Qty: 1 on 02/16/2023 by Afua Holm MD PhD at [facility] Left: Eye [place] [employer] [id number] 01/28/2025 [id number] / [id number] / Procedures Procedure Name Priority Date/Time Associated Diagnosis Comments HEPATITIS PANEL, ACUTE Routine 04/16/2021 5:26 PM EMOTIONAL SUPPORT TEACHER from Last 3 Months or Most Recently Relevant to Health Maintenance Results * Hepatitis panel, acute (04/16/2021 5:26 PM EMOTIONAL SUPPORT TEACHER) Hep A IgM Nonreactive Nonreactive [facility] Comment: Interpretive Data: If Hep A IgM Ab is reported as Equivocal, a new sample should be drawn in two weeks for testing. Current interpretive data was last revised on 19. Hep B core IgM Nonreactive Nonreactive [facility] Comment: Interpretive Data If HepB Core IgM Ab is reported as Equivocal, a new sample should be drawn in two weeks for testing. Current interpretive data was last revised on 19. Hep C Ab Nonreactive Nonreactive [facility] Comment: Interpretive Data Nonreactive: Antibodies to HCV not detected. Does NOT exclude the possibility of recent exposure to HCV. Equivocal: Equivocal for HCV antibodies. Supplemental molecular testing will be automatically performed to determine infection status in accordance with current CDC screening recommendations. Reactive: Positive for HCV antibodies. This may represent current or past HCV infection. Supplemental molecular testing will be automatically performed to determine current infection status in accordance with current CDC screening recommendations. Interpretive data was last revised on 2019. HepBsAg Nonreactive Nonreactive [facility] Blood 04/16/2021 5:26 PM EMOTIONAL SUPPORT TEACHER 04/16/2021 5:30 PM EMOTIONAL SUPPORT TEACHER Zeina YEBOAH LAB MICROBIOLOGY - GENERAL ORDERABLES Final Result [facility] [address] Department [place] [address] from Last 3 Months or Most Recently Relevant to Health Maintenance Insurance AETNA MEDICARE GOLD AETNA MEDICARE GOLD BL CHOICE PRF PPO [place] AETNA MEDICARE GOLD Advance Directives For more information, please contact: [phone] Documents on File Type Date Recorded Patient Project Inspector Expl anation Power of Inventory Coordinator 02/16/2023 8:19 AM Power of Inventory Coordinator 04/28/2021 12:26 PM ADVANCE DIRECTIVE 12/17/2014 12:00 AM POW ER OF CALENDER WORKER HELPER FINANCIAL/MEDICAL * Full Code (Latest Code Status on File) Date Activated Date Inactivated Comments 04/15/2021 5:29 PM 04/18/2021 5:14 PM Care Teams Public Safety Director Relationship Specialty Start Date End Date Kolton Roe MD PCP - General 08/27/15 [place] [id number] [facility] * [place] [address] Consulting Physician Gastroenterology 04/18/21 Johan Martinez MD [address] [place] [address] Consulting Physician Rheumatology 09/19/21
--- OUTSIDE RECORDS SUMMARY | 2024-10-12 07:35 | XMS_ITS | Clinical Summary ---
Author Organization [facility] Address [address] [place] [address] Care Team Providers Care Juice Scaleman Name Role Phone Kolton Roe MD Primary Care Provider [phone] Social History Tobacco Use Types Packs/Day Years [...] Screening with HPV 05/08/1991 Mammogram Screening 2001 Pneumococcal Vaccine: 50+ Ye ars (1 of 1 - PCV) 05/08/2011 Zoster Vaccines (1 of 2) 05/08/2011 COVID-19 Vaccine (2023-2 5 season) 2023 RSV Immunization or 60+ Years (1 - 1-dose 75+ series) 2036 Meningococcal B Vaccine Aged Out No l onger eligible based on patient's age to complete this topic Meningococcal Vaccine Aged Out No melba alexa eligible based on patient's age to complete this topic RSV Immunizations Under 20 Months Aged Out No longer eligible based on patient's age to complete this topic Insurance JACQUELINE SAGASTUME Care Teams Juice Scaleman Relationship Specialty Start Date End Date Kolton Roe MD PCP - General FAMILY PRACTICE 12/04/19
--- OUTSIDE RECORDS SUMMARY | 2024-10-12 07:35 | XMS_ITS | Clinical Summary ---
Author Organization [facility] Address [address] [facility] [address] [place] [address] Phone Care Team Providers Care Jewel Hole Finish Opener Name Role Phone Kolton Roe MD Primary Care Provider [phone] Jose Sloan DO Unavailable [phone] Medications budesonide (ENTOCORT EC) 3 MG CAPSULE [...] Cancer Screening (CCS) 05/08/1991 HPV/Cotest 05/08/1991 Cologuard 2006 Immunochemical Fecal Occult Blood 2006 Pneumococcal Immunization (5 0+ years) (1 of 1 - PCV) 05/08/2011 Zoster Immunization (1 of 2) 05/08/2011 SARS-COV-2 Immunization (1 - 2023- season) 2023 Influenza Immunization (#1) 2024 Colonoscopy 02/11/2025 02/11/2015 Colorectal Cancer Screening 02/11/2025 Respiratory Syncytial Virus (RSV) Immunization (Adult) (1 - 1-dose 75+ series) 2036 Hepatitis C Virus (HCV) Screening Completed 015 Hepatitis B Immunization Aged Out No longer eligible based on patient's age to complete this topic Human Papillomavirus (HPV) Immunization Aged Out No longer eligible b ased on patient's age to complete this topic [...] Recently Relevant to Health Maintenance Care Teams Jewel Hole Finish Opener Relationship Specialty Start Date End Date Kolton Roe MD [address] [place] [address] [address] [place] [address] PCP - General Family Medicine 02/11/15 Jose Sloan DO [address] [place] [address] [address] [place] [address] Gastroenterology 02/11/15
== END 2024-10-12 07:32 | disposition home or self-care (01) ==
LOC: ANHIMG 07:33
PROVIDERS: PCP Family Medicine; Visit Provider Family Medicine
DX: Z12.31 Encounter for screening mammogram for malignant neoplasm of breast (principal)
CPT/HCPCS: 77063; 77067

== ENCOUNTER 2025-01-05 10:42 | Outpatient (CLI) | payer MEDICARE, SELFPAY ==
--- OUTSIDE RECORDS SUMMARY | 2025-01-05 11:24 | XMS_ITS | Clinical Summary ---
Author Organization [facility] Address [address] [facility] [address] [place] [address] Phone Care Team Providers Care Regulatory Affairs Coordinator Name Role Phone Kolton Reo MD Primary Care Provider [phone] Jose Sloan DO Unavailable [phone] Medications budesonide (ENTOCORT EC) 3 MG [...] (1 of 2) 05/08/2011 Influenza Immunization (#1) 2024 SARS-COV-2 Immunization (1 - season) 2024 Colonoscopy 02/11/2025 02/11/2015 Colorectal Cancer Screening [...] ACUTE (AHP) (02/14/2015) Blood specimen (specimen) us oJse Sloan DO HEMATOLOGY ORDERABLES Final Res ult * HM COLONOSCOPY (02/11/2015) us Jose Sloan DO PROCEDURE/MINOR SURGICAL ORDERA BLES Final Result from Last 3 Months or Most Recently Relevant to Health Maintenance Care Teams Regulatory Affairs Coordinator Relationship Specialty Start Date End Date Kolton Roe MD [address] [place] [address] [address] [place] [address] PCP - General Family Medicine 02/11/15 Jose Sloan DO [address] [place] [address] [address] [place] [address] Gastroenterology 02/11/15
--- OUTSIDE RECORDS SUMMARY | 2025-01-05 11:24 | XMS_ITS | Clinical Summary ---
Author Organization [facility] Address [address] [place] [address] Care Team Providers Care Manager Mass Name Role Phone Kolton Roe MD Primary Care Provider [phone] Timbo Swanson MD Unavailable [phone] Johan Martinez MD Unavailable [phone] Allergies Active Allergy Reactions Criticality Noted [...] total) by mouth every morning Active multivit rmiymjss-mytc-XC -calcium (THERA-M) 9 mg iron-400 mcg tabletIndication [...] 02/27/2023 Assessment & Plan (02/27/2023 3:50 PM HEEL NAILING MACHINE OPERATOR): POD1.5 s/p CEIOL OS --Last seen 02/25 [...] 12/05/2019 Assessment & Plan (01/13/2022 12:08 PM HEEL NAILING MACHINE OPERATOR): No recurrence Continue valtrex 500mg daily (may [...] proceed. Assessment & Plan (01/13/2022 12:00 PM HEEL NAILING MACHINE OPERATOR): Visually significant, patient elects to continue to [...] Crohn's disease - (Added by TW Conv) Encounters Date Type Department Care Team Description 12/19/2024 Orders Only [facility] Medicine Ophthalmology [address] [facility] [address], [address] [place] [address] Afua Holm MD PhD from Last 3 Months Immunizations Immunization Administration Dates Next Due Influenza, [...] on file Legal Sex Female 8:11 AM HEEL NAILING MACHINE OPERATOR Gender Identity Female 04/21/2020 8:21 PM HEEL NAILING MACHINE OPERATOR Sexual Orientation Not on file Last Filed Vital Signs Vital Sign Reading Time Taken Comments Blood Pressure 113/59 02/27/2023 1:30 PM HEEL NAILING MACHINE OPERATOR Pulse 67 02/27/2023 1:30 PM HEEL NAILING MACHINE OPERATOR Temperature 36.8 C (98.3 F) 02/27/2023 1:30 PM HEEL NAILING MACHINE OPERATOR Respiratory Rate 16 02/27/2023 1:30 PM HEEL NAILING MACHINE OPERATOR Oxygen Saturation 99% 02/27/2023 1:30 PM HEEL NAILING MACHINE OPERATOR Inhaled Oxygen Concentration - - Weight 56.7 kg (125 lb) 02/27/2023 1:30 PM HEEL NAILING MACHINE OPERATOR Height 175.3 cm (5' 9) 02/27/2023 1:30 PM HEEL NAILING MACHINE OPERATOR Body Mass Index 18.46 02/27/2023 1:30 PM HEEL NAILING MACHINE OPERATOR Plan of Treatment Health Maintenance Due Date Last Done Comments Breast Cancer Screening-Mammogram 1961 Cervical Cancer Screening 1961 Colon Cancer Screening-Colonoscopy 1961 Depression Screening 1961 Hepatitis B Screening 05/08/1979 Regular Well Visit/Exam 18-64 05/08/1979 Zoster Vaccine (2 of 3) 03/04/2015 01/07/2015 DTaP/Tdap/Td Vaccine (2 - Td or Tdap) 05/14/2018 05/14/2008 Pneumococcal vaccine <65 (3 of 3 - PCV20 or PCV21) 03/21/2020 03/21/2015, 04/02/2011 Influenza Vaccine (#1) 2024 2, 12/01/2019, 10/24/2015, Additional history exists Hepatitis C Screening Completed 04/16/2021 Medical Devices Implanted Type Area Remotely Piloted Vehicle Controller Device Identifier Shelf Expiration Date Model / Serial / Lot [place] [employer] Lens Iol Tecnis Smplcty 1-Pc Clr [place] 24.0 Diopter [id number] - [id number] - [id number] Implanted:Qty: 1 on 02/16/2023 by Afua Holm MD PhD at [facility] Left: Eye [place] [employer] [id number] 01/28/2025 [id number] / [id number] / Procedures Procedure Name Priority Date/Time Associated Diagnosis Comments HEPATITIS PANEL, ACUTE Routine 04/16/2021 5:26 PM HEEL NAILING MACHINE OPERATOR from Last 3 Months or Most Recently Relevant to Health Maintenance Results * Hepatitis panel, acute (04/16/2021 5:26 PM HEEL NAILING MACHINE OPERATOR) Hep A IgM Nonreactive Nonreactive [facility] Comment: Interpretive Data: If Hep A IgM Ab is reported as Equivocal, a new sample should be drawn in two weeks for testing. Current interpretive data was last revised on 19. Hep B core IgM Nonreactive Nonreactive [facility] Comment: Interpretive Data If HepB Core IgM Ab is reported as Equivocal, a new sample should be drawn in two weeks for testing. Current interpretive data was last revised on 19. Hep C Ab Nonreactive Nonreactive [facility] Comment: Interpretive Data Nonreactive: Antibodies to HCV [...] last revised on 2019. HepBsAg Nonreactive Nonreactive [facility] Blood 04/16/2021 5:26 PM HEEL NAILING MACHINE OPERATOR 04/16/2021 5:30 PM HEEL NAILING MACHINE OPERATOR Zeina YEBOAH LAB MICROBIOLOGY - GENERAL ORDERABLES Final Result [facility] [address] Department [place] [address] from Last 3 Months or Most Recently Relevant to Health Maintenance Insurance AETNA MEDICARE GOLD AETNA MEDICARE GOLD BL CHOICE PRF PPO [place] AETNA MEDICARE GOLD Advance Directives For more information, please contact: [phone] Documents on File Type Date Recorded Patient Emblem Cutter Expl anation Power of Sumo Wrestler 02/16/2023 8:19 AM Power of Sumo Wrestler 04/28/2021 12:26 PM ADVANCE DIRECTIVE 12/17/2014 12:00 AM POW ER OF VICE ADMIRAL FINANCIAL/MEDICAL * Full Code (Latest Code Status on File) Date Activated Date Inactivated Comments 04/15/2021 5:29 PM 04/18/2021 5:14 PM Care Teams Manager Mass Relationship Specialty Start Date End Date Kolton Roe MD PCP - General 08/27/15 [place] [address] [address] [facility] * [place] [address] Consulting Physician Gastroenterology 04/18/21 Johan Martinez MD [address] [place] [address] Consulting Physician Rheumatology 09/19/21
--- OUTSIDE RECORDS SUMMARY | 2025-01-05 11:24 | XMS_ITS | Clinical Summary ---
Author Organization [facility] Address [address] [place] [address] Care Team Providers Care Car Varnisher Name Role Phone Kolton Roe MD Primary Care Provider [phone] Social History Tobacco Use Types Packs/Day Years [...] Vaccines (1 of 2) 05/08/2011 COVID-19 Vaccine ( - 2024-2 6 season) 2024 Influenza Adult (#1) 2024 12/01/2019 RSV Immunization or 60+ Years (1 - 1-dose 75+ series) 2036 Hepatitis A Vaccines Aged Out No long er eligible based on patient's age to complete this topic Meningococcal B Vaccine Aged Out No l onger eligible based on patient's age to complete this topic Meningococcal Vaccine Aged Out No melba alexa eligible based on patient's age to complete this topic RSV Immunizations Under 20 Months Aged Out No longer eligible based on patient's age to complete this topic Insurance AETNA [place] Care Teams Car Varnisher Relationship Specialty Start Date End Date Kolton Roe MD PCP - General FAMILY PRACTICE 12/04/19
[2025-01-05 12:54] LABS: Hematocrit 41.4 % (37.0-47.0); Hemoglobin 13.7 g/dL (12.0-15.0); Immature Granulocyte Percent A 0.2 % (0-0.5); Lymphocytes Absolute Auto 1.50 K/mm3 (0.9-3.2); Mean Corpuscular HGB Conc 33.1 g/dl (32-36); Mean Corpuscular Hemoglobin 30.9 pg (26-34); Mean Corpuscular Volume 93.2 fl (80-100); Nucleated Red Blood Cells Absolute Auto 0.000 K/mm3 (0.0-0.012); Nucleated Red Blood Cells Perc 0.0 % (0.0-0.2); Platelet Count Result 187 k/mm3 (150-375); Red Blood Count 4.44 M/mm3 (4.2-5.4); White Blood Count 5.1 K/mm3 (4.5-10.0)
[2025-01-05 12:59] LABS: Iron 117 ug/dL (37-170)
[2025-01-05 13:08] LABS: Alanine Aminotransferase 46 U/L (6-35); Albumin Level 4.5 g/dL (3.5-5.1); Alkaline Phosphatase 55 U/L (38-126); Anion Gap 5 mmol/L (4-12); Aspartate Amino Transferase 53 U/L (14-36); Bilirubin,Total 0.9 mg/dL (0.2-1.3); Blood Urea Nitrogen 17 mg/dL (7-17); CRP < 0.5 mg/dL (<1.0); Calcium 9.1 mg/dL (8.4-10.2); Carbon Dioxide 29 mmol/L (22-30); Chloride 101 mmol/L (98-107); Estimated Glomerular Filt Rate > 60; Glucose 92 mg/dL (65-110); Potassium 4.0 mmol/L (3.4-5.0); Sodium 135 mmol/L (137-145); Total Protein 7.4 g/dL (6.3-8.2)
[2025-01-05 13:37] LABS: Percent Iron Saturation 33 % (20-50)
[2025-01-05 13:42] LABS: Thyroid Stimulating Hormone 0.030 uIU/mL (0.465-4.680)
[2025-01-05 13:50] LABS: Ferritin 46.10 ng/mL (11.1-264)
[2025-01-05 14:18] LABS: Vitamin B12 849.0 pg/mL (239-931)
[2025-01-06 06:08] LABS: Hep Be Antibody Non Reactive (Negative)
== END 2025-01-05 10:43 | disposition home or self-care (01) ==
PROVIDERS: PCP Family Medicine
DX: K50.018 Crohn's disease of small intestine with other complication (principal); Z98.890 Other specified postprocedural states; D49.0 Neoplasm of unspecified behavior of digestive system
CPT/HCPCS: 36415; 80053; 82306; 82607; 82728; 82746; 83540; 83550; 84443; 85025; 85652; 86140; 86480; 86707

== ENCOUNTER 2025-01-08 12:52 | Outpatient (CLI) | payer MEDICARE, SELFPAY ==
--- OUTSIDE RECORDS SUMMARY | 2025-01-08 13:10 | XMS_ITS | Clinical Summary ---
Author Organization [facility] Address [address] [place] [address] Care Team Providers Care Wildlife Rehabilitator Name Role Phone Kolton Roe MD Primary Care Provider [phone] Timbo Swanson MD Unavailable [phone] Johan Martinez MD Unavailable [phone] Allergies Active Allergy Reactions Criticality Noted [...] total) by mouth every morning Active multivit oevjzsoy-ajgi-PQ -calcium (THERA-M) 9 mg iron-400 mcg tabletIndication [...] 02/27/2023 Assessment & Plan (02/27/2023 3:50 PM DIGITAL FORENSICS EXAMINER): POD1.5 s/p CEIOL OS --Last seen 02/25 [...] 12/05/2019 Assessment & Plan (01/13/2022 12:08 PM DIGITAL FORENSICS EXAMINER): No recurrence Continue valtrex 500mg daily (may [...] proceed. Assessment & Plan (01/13/2022 12:00 PM DIGITAL FORENSICS EXAMINER): Visually significant, patient elects to continue to [...] Department Care Team Description 12/19/[address] [facility] Medicine Ophthalmology [address], [address] [place] [address] Afua Holm MD PhD from [...] on file Legal Sex Female 8:11 AM DIGITAL FORENSICS EXAMINER Gender Identity Female 04/21/2020 8:21 PM DIGITAL FORENSICS EXAMINER Sexual Orientation Not on file Last Filed Vital Signs Vital Sign Reading Time Taken Comments Blood Pressure 113/59 02/27/2023 1:30 PM DIGITAL FORENSICS EXAMINER Pulse 67 02/27/2023 1:30 PM DIGITAL FORENSICS EXAMINER Temperature 36.8 C (98.3 F) 02/27/2023 1:30 PM DIGITAL FORENSICS EXAMINER Respiratory Rate 16 02/27/2023 1:30 PM DIGITAL FORENSICS EXAMINER Oxygen Saturation 99% 02/27/2023 1:30 PM DIGITAL FORENSICS EXAMINER Inhaled Oxygen Concentration - - Weight 56.7 kg (125 lb) 02/27/2023 1:30 PM DIGITAL FORENSICS EXAMINER Height 175.3 cm (5' 9) 02/27/2023 1:30 PM DIGITAL FORENSICS EXAMINER Body Mass Index 18.46 02/27/2023 1:30 PM DIGITAL FORENSICS EXAMINER Plan of Treatment Health Maintenance Due Date [...] Completed 04/16/2021 Medical Devices Implanted Type Area Drive Thru Order Taker Device Identifier Shelf Expiration Date Model / Serial / Lot [place] [employer] Lens Iol Tecnis Smplcty 1-Pc Clr [place] 24.0 Diopter [id number] - [id number] - [id number] Implanted:Qty: 1 on 02/16/2023 by Afua Holm MD PhD at [facility] Left: Eye [employer] [id number] 01/28/2025 [id number] / [id number] / Procedures Procedure Name Priority Date/Time Associated Diagnosis Comments HEPATITIS PANEL, ACUTE Routine 04/16/2021 5:26 PM DIGITAL FORENSICS EXAMINER from Last 3 Months or Most Recently Relevant to Health Maintenance Results * Hepatitis panel, acute (04/16/2021 5:26 PM DIGITAL FORENSICS EXAMINER) Hep A IgM Nonreactive Nonreactive [facility] Comment: Interpretive Data: If Hep A IgM Ab is reported as Equivocal, a new sample should be drawn in two weeks for testing. Current interpretive data was last revised on 19. Hep B core IgM Nonreactive Nonreactive [facility] Comment: Interpretive Data If HepB Core IgM Ab is reported as Equivocal, a new sample should be drawn in two weeks for testing. Current interpretive data was last revised on 19. Hep C Ab Nonreactive Nonreactive [facility] Comment: Interpretive Data Nonreactive: Antibodies to HCV [...] last revised on 2019. HepBsAg Nonreactive Nonreactive [facility] Blood 04/16/2021 5:26 PM DIGITAL FORENSICS EXAMINER 04/16/2021 5:30 PM DIGITAL FORENSICS EXAMINER Zeina YEBOAH LAB MICROBIOLOGY - GENERAL ORDERABLES Final Result [facility] [address] Department [place] [address] from Last 3 Months or Most Recently Relevant to Health Maintenance Insurance AETNA MEDICARE GOLD AETNA MEDICARE GOLD BL CHOICE PRF PPO [place] AETNA MEDICARE GOLD Advance Directives For more information, please contact: [phone] Documents on File Type Date Recorded Patient Gas Or Water Meter Installer Expl anation Power of Personal Lines Account Executive 02/16/2023 8:19 AM Power of Personal Lines Account Executive 04/28/2021 12:26 PM ADVANCE DIRECTIVE 12/17/2014 12:00 AM POW ER OF SALES ENGINEERING MANAGER FINANCIAL/MEDICAL * Full Code (Latest Code Status on File) Date Activated Date Inactivated Comments 04/15/2021 5:29 PM 04/18/2021 5:14 PM Care Teams Wildlife Rehabilitator Relationship Specialty Start Date End Date Kolton Roe MD PCP - General 08/27/15 [place] [address] [address] [facility] * [place] [address] Consulting Physician Gastroenterology 04/18/21 Johan Martinez MD [address] [place] [address] Consulting Physician Rheumatology 09/19/21
--- OUTSIDE RECORDS SUMMARY | 2025-01-08 13:10 | XMS_ITS | Clinical Summary ---
Author Organization [facility] Address [address] [place] [id number] Care Team Providers Care Tool Repair Technician Name Role Phone Kolton Roe MD Primary Care Provider [phone]- [phone] Social History Tobacco Use Types Packs/Day Years [...] this topic Insurance [employer] Care Teams Tool Repair Technician Relationship Specialty Start Date End Date Kolton Roe MD PCP - General FAMILY PRACTICE 12/04/19
--- OUTSIDE RECORDS SUMMARY | 2025-01-08 13:10 | XMS_ITS | Clinical Summary ---
Author Organization [facility] Address [address] [facility] [address] [place] [address] Phone Care Team Providers Care Safety Deposit Clerk Name Role Phone Kolton Roe MD Primary Care Provider [phone]- [phone] Jose Sloan DO Unavailable Medications budesonide (ENTOCORT EC) 3 MG CAPSULE [...] Recently Relevant to Health Maintenance Care Teams Safety Deposit Clerk Relationship Specialty Start Date End Date Kolton Roe MD [address] [place] [address] [address] [place] [address] PCP - General Family Medicine 02/11/15 Jose Sloan DO [address] [place] [address] [address] [place] [address] Gastroenterology 02/11/15
[2025-01-11 15:09] LABS: Calprotectin, Fecal 78 ug/g (0-120)
== END 2025-01-08 12:53 | disposition home or self-care (01) ==
PROVIDERS: PCP Family Medicine
DX: D49.0 Neoplasm of unspecified behavior of digestive system (principal); K50.018 Crohn's disease of small intestine with other complication; Z98.890 Other specified postprocedural states
CPT/HCPCS: 83993

== ENCOUNTER 2025-01-30 11:07 | Outpatient (CLI) | payer MEDICARE, SELFPAY ==
[2025-01-30 13:39] LABS: Thyroid Stimulating Hormone 2.610 uIU/mL (0.465-4.680)
== END 2025-01-30 11:08 | disposition home or self-care (01) ==
LOC: ANHGOSHLAB 11:08
PROVIDERS: PCP Family Medicine; Visit Provider Nurse Practitioner Family
DX: R53.83 Other fatigue (principal); R79.89 Other specified abnormal findings of blood chemistry
CPT/HCPCS: 36415; 84443